=== PATIENT | male | born 1960 | race Two or more races ===

== ENCOUNTER 2023-03-02 21:16 | Emergency (ER) | payer OTHER, MEDICAID ==
[~2023-03-02] VITALS: Ht 177.8 cm; Wt 80.0 kg
[2023-03-02] MEDS ORDERED: KETOROLAC TROMETH 60MG/2ML VIAL IM ONE (21:45)
[2023-03-02] MEDS ORDERED: ACET500T58 PO (23:03)
[2023-03-02] MEDS ORDERED: IBUP-1455 PO (23:03)
[2023-03-02 23:07] VITALS: BP 161/71; PULSE 75; RESP 19; TEMP 98.2; O2SAT 97
== END 2023-03-02 23:21 | disposition home or self-care (01) ==
LOC: EDBD 21:16 → ER 21:16
DX: M19.011 Primary osteoarthritis, right shoulder (principal); Z59.00 Homelessness unspecified
CPT/HCPCS: 73030; 96372; 99283; J1885